=== PATIENT | male | born 1980 | race Two or more races ===

== ENCOUNTER 2016-11-30 08:00 | Outpatient (CLI) | payer BC ==
[2016-11-30 13:33] LABS: CALCIUM 9.2 mg/dL (8.5-10.3); CREATININE 1.3 mg/dL (0.6-1.2); POTASSIUM 3.8 mmol/L (3.5-5.0)
== END 2016-11-30 08:01 | disposition home or self-care (01) ==
LOC: LAB.WCP 08:00
PROVIDERS: ATTEND Family Medicine
DX: R30.0 Dysuria (principal)
CPT/HCPCS: 36415; 80048

== ENCOUNTER 2020-08-16 09:03 | Outpatient (CLI) | payer BC ==
--- NOTE | 2020-08-16 09:41 | XRAY Report ---
PROCEDURE: Chest 2 View X-Ray INDICATIONS: DYSPNEA ON EXERTION TECHNIQUE: 2 view(s) of the chest. COMPARISON: None. FINDINGS: Surgical changes and devices: None. Lungs and pleura: No pleural effusions or pneumothorax. Lungs are clear. Mediastinum: Mediastinal contours are normal. Heart size is normal. Bones and chest wall: No suspicious bony abnormalities. Soft tissues appear unremarkable. IMPRESSION: No acute disease. Reviewed by: Bao Peoples MD on 08/16/2020 9:39 AM [facility] Approved by: Bao Peoples MD on 08/16/2020 9:39 AM [facility] Station ID: [id number]
== END 2020-08-16 09:04 | disposition home or self-care (01) ==
LOC: DI.N 09:03
PROVIDERS: ATTEND Physician Assistant Medical
DX: Z00.00 Encounter for general adult medical examination without abnormal findings (principal); R06.09 Other forms of dyspnea; R13.10 Dysphagia, unspecified; R53.83 Other fatigue
CPT/HCPCS: 36415; 80053; 80061; 82306; 82607; 83721; 84443; 85025; 85651; 86140

== ENCOUNTER 2020-08-16 09:06 | Outpatient (CLI) | payer BC ==
[2020-08-16 13:05] LABS: BASOPHILS # (AUTO) 0.1 10^3/uL (0.0-0.1); BASOPHILS % (AUTO) 1.1 %; EOSINOPHILS # (AUTO) 0.5 10^3/uL (0.0-0.7); EOSINOPHILS % (AUTO) 5.6 %; LYMPHOCYTES # (AUTO) 2.3 10^3/uL (1.5-3.5); LYMPHOCYTES % (AUTO) 28.1 %; MEAN CORPUSCULAR HEMOGLOBIN 30.1 pg (27.0-31.0); MEAN CORPUSCULAR HGB CONC 32.7 g/dL (32.0-36.0); MONOCYTES # (AUTO) 0.8 10^3/uL (0.0-1.0); MONOCYTES % (AUTO) 10.4 %; NEUTROPHILS # (AUTO) 4.4 10^3/uL (1.5-6.6); NEUTROPHILS % (AUTO) 54.6 %; PLT - PLATELET COUNT 334 10^3/uL (130-450); RED BLOOD COUNT 4.65 10^6/uL (4.70-6.10); RED CELL DISTRIBUTION WIDTH 12.5 % (12.0-15.0); WHITE BLOOD COUNT 8.1 x10^3/uL (4.8-10.8)
[2020-08-16 13:36] LABS: ALBUMIN 4.2 g/dL (3.2-5.5); ALBUMIN/GLOBULIN RATIO 1.4 (1.0-2.2); ALKALINE PHOSPHATASE 54 IU/L (42-121); ALT ALANINE AMINOTRANSFERASE 31 IU/L (10-60); AST ASPARTATE AMINOTRANSFERASE 21 IU/L (10-42); BILIRUBIN,TOTAL 0.7 mg/dL (0.2-1.0); BUN - BLOOD UREA NITROGEN 18 mg/dL (6-20); CALCIUM 9.3 mg/dL (8.5-10.3); CARBON DIOXIDE - CO2 26 mmol/L (21-32); CHLORIDE 103 mmol/L (101-111); CHOL/HDL RATIO 2.8 (<5.0); CHOLESTEROL 156 mg/dL; CREATININE 1.3 mg/dL (0.6-1.2); GLUCOSE 101 mg/dL (70-100); HDL CHOLESTEROL 55 mg/dL; LDL CHOLESTEROL,CALCULATED 83 mg/dL; LDL/HDL RATIO 1.5 (<3.6); TOTAL PROTEIN 7.3 g/dL (6.7-8.2); VLDL CHOLESTEROL 18 mg/dL
[2020-08-16 13:37] LABS: CRP - C-REACTIVE PROTEIN < 1.0 mg/dL (0-1.0)
== END 2020-08-16 09:07 | disposition home or self-care (01) ==
LOC: LAB.N 09:06
PROVIDERS: ATTEND Physician Assistant Medical
DX: Z00.00 Encounter for general adult medical examination without abnormal findings (principal); R53.83 Other fatigue
CPT/HCPCS: 36415; 80053; 80061; 82306; 82607; 83721; 84443; 85025; 85651; 86140

== ENCOUNTER 2020-08-18 14:35 | Outpatient (CLI) | payer BC ==
[2020-08-18] MEDS ORDERED: IOVERSOL 320 100 ML VIAL IVP ONE ×2 (14:54→15:33)
--- NOTE | 2020-08-18 16:31 | CT Report ---
PROCEDURE: SOFT TISSUE NECK W INDICATIONS: DYSPHAGIA CONTRAST: IV CONTRAST: Optiray 320 ml: 100 PO CONTRAST: *NO PO CONTRAST TECHNIQUE: After the administration of intravenous contrast, 3.0 mm axial sections acquired from the sella to th e aortic arch. Additional oblique axial 3.0 mm sections acquired through the pharynx. 3 mm thick co tyrell reformats were generated. For radiation dose reduction, the following was used: automated exp osure control, adjustment of mA and/or kV according to patient size. COMPARISON: None. FINDINGS: Image quality: Excellent. Lymph nodes: No enlarged lymph nodes seen throughout the neck. Vessels: Visualized vasculature appears patent. Neck spaces: The oropharynx, nasopharynx, and pharynx demonstrate no mucosal lesions. The vocal cor ds, false vocal cords, pyriform sinuses, epiglottis, vallecula, and tongue base all appear normal. E xtramucosal spaces appear unremarkable. Glands: The parotid and submandibular glands appear normal. The thyroid demonstrates a punctate low -attenuation focus within the left lobe, better appreciated on ultrasound of 08/18/2020. Miscellaneous: Visualized brain and orbits appear normal. Lung apices appear clear. Superficial so ft tissues appear normal. Bones: No suspicious bony lesions. Visualized sinuses and mastoids appear unremarkable. IMPRESSION: 1. No visualized cause of dysphagia. 2. Punctate area of low attenuation within the left thyroid lobe, better appreciated on thyroid ultra sound of 08/18/2020. Reviewed by: Sonia Lowe MD on 08/18/2020 4:29 PM PST Approved by: Sonia Lowe MD on 08/18/2020 4:29 PM PST Station ID: [id number]
--- NOTE | 2020-08-18 16:56 | Ultrasound Report ---
PROCEDURE: Head or Neck Soft Tissue INDICATIONS: DYSPHAGIA TECHNIQUE: Real-time scanning was performed of the thyroid gland, with image documentation. COMPARISON: None FINDINGS: Right: Thyroid lobe measures 5.1 x 1.6 x 1.9 cm, and is homogeneous in echotexture. Left: Thyroid lobe measures 5.1 x 1.4 x 1.7 cm, and is homogenous in echotexture. Isthmus: 3 mm thick. Nodule number: One Location: Superior medial left lower Size: 0.4 x 0.3 x 0.4 cm. Composition: Solid Echogenicity: Hyperechoic Shape: wider than tall. Margins: Smooth Echogenic foci: None Total points: 3 ACR TI-RADS category: 3 IMPRESSION: Focal lesion demonstrating category 3 characteristics. Secondary to small size, based on below criteria, no additional follow-up is recommended. ACR TI-RADS definitions and recommendations: TI-RADS 1 (benign): 0 points. FNA not needed. TI-RADS 2 (not suspicious): 2 points. FNA not needed. TI-RADS 3 (mildly suspicious): 3 points. ? FNA if 2.5 cm or larger, follow up if 1.5 cm or larger (at 1, 3, and 5 years). TI-RADS 4 (moderately suspicious): 4-6 points. ? FNA if 1.5 cm or larger, follow up if 1 cm or larger (at 1, 2, 3, and 5 years). TI-RADS 5 (highly suspicious): 7 points or more. ? FNA if 1 cm or larger, follow up if 0.5 cm or larger (every year for 5 years). Reviewed by: Sonia Lowe MD on 08/18/2020 4:55 PM PST Approved by: Sonia Lowe MD on 08/18/2020 4:55 PM PST Station ID: [id number]
== END 2020-08-18 14:36 | disposition home or self-care (01) ==
LOC: DI 14:35
PROVIDERS: ATTEND Physician Assistant Medical
DX: E04.1 Nontoxic single thyroid nodule (principal)
CPT/HCPCS: 70491; 76536; Q9967

== ENCOUNTER 2020-11-03 15:41 | Outpatient (CLI) | payer BC ==
[2020-11-03 18:31] LABS: THYROID STIMULATING HORMONE 1.62 uIU/mL (0.34-5.60)
== END 2020-11-03 15:42 | disposition home or self-care (01) ==
LOC: LAB.N 15:41
PROVIDERS: ATTEND Physician Assistant Medical
DX: E55.9 Vitamin D deficiency, unspecified (principal); E03.9 Hypothyroidism, unspecified
CPT/HCPCS: 36415; 82306; 84443

== ENCOUNTER 2021-01-28 15:46 | Outpatient (CLI) | payer BC ==
[2021-01-28 18:07] LABS: THYROID STIMULATING HORMONE 2.43 uIU/mL (0.34-5.60)
== END 2021-01-28 15:47 | disposition home or self-care (01) ==
LOC: LAB.N 15:46
PROVIDERS: ATTEND Physician Assistant Medical
DX: E03.9 Hypothyroidism, unspecified (principal)
CPT/HCPCS: 36415; 84443

== ENCOUNTER 2021-02-25 15:40 | Outpatient (CLI) | payer BC ==
[2021-02-25 16:52] VITALS: BP 148/92
--- NOTE | 2021-02-25 16:52 | SLEEP CARE CONSULTATION ---
Information from patient questionnaire entered by Pierre Sommers. I have reviewed and concur with the information entered by Pierre Sommers. This document represents the service I personally performed and the decisions made by me, Felisha Ibarra ARNP. History of Present Illness Service Date and Time: 02/25/2021 1540 Reason for Visit: New patient Chief Complaint: reports: Unrefreshed sleep, Snoring, Excessive daytime sleepiness, Fatigue, Frequent awakenings at night Date of Onset: Whole life/as long as I can remember Usual bedtime: 11 PM - midnight Time it takes to fall asleep: Usually a couple hours/lately 10 - 15 min Snores at night: Yes Observed to quit breathing while asleep: No Sleeps alone due to snoring: No Number of times waking at night: Many Reasons for waking at night: reports: Snoring, Pain, Bathroom, Other (Noise, unknown reason) Toss, Turn, or Twitch while sleeping: Yes Recalls having dreams: Yes Usually gets out of bed at: Apx 6 AM Mon - Fri, 8 - 9 Sat & Sun Feels refreshed in the morning: No Morning headache: Yes (2 times a month) Sleepy or fatigued during the day: Yes Ever fallen asleep while driving: Yes (drowsy driving but no accidents) Takes day naps: Yes (used to takes several naps but now he is not napping due to adderall) Dreams during day naps: No Additional HPI information: I had the pleasure of seeing MEGAN TERRAZAS today regarding the possibility of him having a sleep disorder. His current complaints are unrefreshed sleep, snoring, insomnia, fatigue, frequent night awakenings and excessive daytime sleepiness. He states at his last PCP visit and was discussing his sleep issues. He has had insomnia all his life and is treated for depression and bipolar mood disorder. He used to be on seroquel but this has since been discontinued several months ago. He recently was found to have hypothyroidism and started on medications. He started sleeping better and felt so much better. But more recently he has been having more days with fatigue and poor sleep. He has had his [place] recently increased. He has not been using any sleep medication except Melatonin occasionally. He can fall asleep now but then he will wake up several times a night and sometimes not able to go back to sleep. He has snored in the past but his has not told him lately that he snores. He has gained a lot of weight when on Seroquel. He was able to lose some weight and thinks the snoring is better because of the weight loss. He has had times when he has woken up choking but this doesn't happen a lot. 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 Patient is single and lives in [place]. Have you smoked in the past 12 months: No Cigarettes per day (20/pack): 20 Years of smokin Quit date: 5-6 years Smoking Pack Years: 12.0 Alcohol use: Yes Alcohol amount and frequency: 2, 6-7 days/week ; really is much lower Caffeine use: Yes Caffeine amount and frequency: 2, 7 days a week Family History Family history of sleep disordered breathing: Yes Family Hx Sleep Apnea: Mother: Snoring, Father: Snoring Allergies and Home Medications Drug allergies reviewed: Yes (NKDA) Home medication list reviewed: Yes Allergy and home medication list: Bupropion Vitamin D Generic adderall Fluticasone, as needed Levothyroxine Albuterol Dunseith Melatonin Review of Systems Weight gain over past 5 years: 10 Gastrointestinal: reports: difficulty swallowing, abdominal pain Neurological: reports: headaches (occasional) Psychiatric: reports: Attention Deficit Hyperactivity, anxiety, depression, mood disorder Ear/Nose/Throat: denies: tonsillectomy Endocrine: reports: thyroid disease, sluggishness (tired), unexplained weakness Musculoskeletal: reports: joint pain (stiffness), muscle pain or cramping Physical Exam Blood Pressure: 148/92 Cuff size: wrist Heart Rate: 96 O2 Saturation: 98 Height: 5 ft 6 in Weight: 222 lb Body Mass Index: 35.8 BMI Classification: Obese Neck circumference: 17 (inches) Mouth and throat: narrow oropharynx Soft palate: long Hard palate: normal Uvula: normal Uvula visualization: 50% Mallampati Class II Tongue: enlarged in size with teeth shaffer on lateral edges Tonsils: absent bilaterally Neck: normal w/o lymphadenopathy or thyromegaly Heart: regular rate and rhythm Lungs: clear bilaterally Impression and Plan 1. Suspected Obstructive Sleep Apnea-Hypopnea Syndrome, as suggested by a history of loud and irregular snoring, gasping or choking in sleep, morning headache, frequent awakening during the night, unrefreshed sleep, and excessive daytime sleepiness. Narrow oropharynx and obesity are common predisposing factors for obstructive sleep apnea-hypopnea syndrome. I recommend proceeding to polysomnography to confirm the diagnosis and to assess severity. If the patient has significant sleep disordered breathing, a manual CPAP titration study will also be performed to find the optimal treatment pressure. I informed the patient of what the sleep studies involve and after some discussion, obtained agreement to proceed. The pathophysiology of obstructive sleep apnea-hypopnea syndrome was discussed with the patient and health risks of cardiovascular and cerebrovascular disease if not treated. AASM brochure for obstructive sleep apnea-hypopnea syndrome given and reviewed. Risks of drowsy driving discussed in detail and patient advised to avoid long distance driving and to door puller at the first sign of drowsiness. Patient agreed to plan. * Schedule polysomnography +- manual CPAP titration study and return in 1-2 weeks after the study to discuss result and initiate therapy. * Avoid long distance driving or driving when feeling sleepy. * Avoid alcohol, sedative and muscle relaxant around bedtime. * Attempt to lose weight. * Review instructions provided by trained office staff on how to prepare for the sleep study. * Return for follow-up after sleep study completed. Counseling Topics: Weight loss health impact Visit Type: In Office Time Spent with Patient (minutes): 41 Provider Statement: I spent 100% of the Face to Face Visit with the patient with greater than 50% spent counseling the patient and coordination of care.
== END 2021-02-25 15:41 | disposition home or self-care (01) ==
LOC: SC 15:40
PROVIDERS: ATTEND Nurse Practitioner Family
DX: G47.10 Hypersomnia, unspecified (principal); G47.8 Other sleep disorders; R51.9 Headache, unspecified; R06.83 Snoring; E66.9 Obesity, unspecified; Z87.891 Personal history of nicotine dependence; Z68.35 Body mass index [BMI] 35.0-35.9, adult
CPT/HCPCS: 99203; 99212

== ENCOUNTER 2021-03-05 15:40 | Outpatient (CLI) | payer BC | END 2021-03-05 15:41 | disposition home or self-care (01) | LOC: SC 15:40 | PROVIDERS: ATTEND Nurse Practitioner Family | DX: G47.33 Obstructive sleep apnea (adult) (pediatric) (principal); R09.02 Hypoxemia | CPT/HCPCS: 95806 ==

== ENCOUNTER 2021-03-18 15:45 | Outpatient (CLI) | payer BC ==
--- NOTE | 2021-03-18 16:29 | SLEEP CARE CONSULTATION ---
Information from patient questionnaire entered by Pierre Sommers. I have reviewed and concur with the information entered by Pierre Sommers. This document represents the service I personally performed and the decisions made by me, Felisha Ibarra ARNP. History of Present Illness Service Date and Time: 03/18/2021 1545 Initial [place] Sleepiness Scale score: 20 (in 2020) Current [place] Sleepiness Scale score: 18 Additional HPI information: MEGAN TERRAZAS returns for follow up and results of the recently performed home sleep study. I explained the pathophysiology behind obstructive sleep apnea. We then spent quite a bit of time discussing different treatment options. For mild obstructive sleep apnea, surgery and oral appliance are alternatives to nasal CPAP therapy but in moderate or severe cases, nasal CPAP is the most effective and reliable treatment. Because apnea is primarily in supine position, then positional management therapy could be effective. Methods discussed such as positioning with pillows, using a T-shirt with tennis balls in the back, and shown commercial products that have a pillow format on back to prevent supine sleep. I reviewed the impact of weight changes on sleep apnea and strongly recommended losing weight. After some discussion, the patient opted to go with the nasal CPAP therapy. Nasal autoCPAP set at 4-15 cmH20 will be ordered with rationale explained. A manual titration study will be ordered if unable to find optimal pressure with office adjustments. I explained how CPAP machine works with sample devices Respironics Dreamstation and ResPortalarium [id number] and what to expect when using the machine. Using CPAP every night in order to get used to it was emphasized. Patient advised to put CPAP mask on before getting into bed so as not to fall asleep without CPAP. To assist acclimation to CPAP use, it could also be used for a short time during day while reading or watching TV. The patient was instructed to call the CPAP supplier to discuss any mechanical problem that may occur. If the mask given is uncomfortable or is difficult to keep on through the night even with adjustment, contact the CPAP supplier as many will replace with another mask style if notified before 30 days. If snoring or perceives is not getting enough air or too much air from the machine, notify this office. [facility] patient education PAP tips reviewed and given to patient. Patient counseled not drink alcohol less than 4 hours before bedtime as it can increase snoring and apnea. Patient was cautioned about risks of drowsy driving until sleepiness symptoms resolve. Sleep Study - Results Type of Sleep Study: Home sleep study Prior sleep studies: No Polysomnography/Home Sleep Study results: Physician Impression: The quality of the study is good. The length of the study is adequate (> 240 minutes). Please also see the tabulated and graphic data. 1. Obstructive Sleep Apnea-Hypopnea (ICD-10 G47.33), mild, with an AHI of 7.7/hr and lucinda SaO2 of 75%. During the study, the patient had 5 apneas (5 obstructive, 0 central, 0 mixed) and 38 hypopneas. The longest episode lasted 78.0 seconds. The patient did not sleep supine during this study (supine AHI was 0, and non-supine, 7.68). 2. Hypoxemia (ICD-10 R09.02), moderate, with the lowest oxygen saturation of 75 % and 7.1 minutes with SaO2 under 90%. Baseline oxygen saturation was normal (Average oxygen saturation was 95%) Allergies and Home Medications Home medication list reviewed: Yes (Generic Depakote 250 mg) Review of Systems Review of systems same as previous: Yes (no changes) Physical Exam Heart Rate: 94 O2 Saturation: 98 Height: 5 ft 6 in Weight: 220 lb Body Mass Index: 35.5 BMI Classification: Obese Impression and Plan 1. Obstructive Sleep Apnea-Hypopnea Syndrome, mild, with lowest oxygen saturation of 75%. Obviously this is the cause of the patients symptoms of unrefreshed sleep, and excessive daytime sleepiness. Positive pressure therapy could benefit anxiety, depression, mood disorder (bipolar) and attention deficit. As mentioned above, the patient will be started on nasal autoCPAP therapy with pressure set at 4-15 cmH2O. A manual titration study will be completed if unable to find optimal treatment pressure with office adjustments. Compliance guidelines also reviewed. A copy of compliance guidelines will be given for reference at check out. 2. Hypoxemia, moderate, with the lowest oxygen saturation of 75 % and 7.1 minutes with SaO2 under 90%. His baseline oxygen saturation was normal with an average oxygen saturation of 95%. * Nasal auto CPAP therapy, pressure at 4-15 cm H2O. * Attempt to lose weight. * Avoid alcohol consumption near bedtime. * Avoid supine sleep until using CPAP. * The patient is again cautioned about driving until sleepiness completely resolves. * Return one month after CPAP obtained. I will assess response to therapy and compliance at that time. Counseling Topics: Weight loss health impact Visit Type: In Office Time Spent with Patient (minutes): 21 Provider Statement: I spent 100% of the Face to Face Visit with the patient with greater than 50% spent counseling the patient and coordination of care.
== END 2021-03-18 15:46 | disposition home or self-care (01) ==
LOC: SC 15:45
PROVIDERS: ATTEND Nurse Practitioner Family
DX: G47.33 Obstructive sleep apnea (adult) (pediatric) (principal); R09.02 Hypoxemia; E66.9 Obesity, unspecified; Z68.35 Body mass index [BMI] 35.0-35.9, adult
CPT/HCPCS: 99212; 99213

== ENCOUNTER 2021-05-01 07:43 | Outpatient (CLI) | payer BC | END 2021-05-01 07:44 | disposition home or self-care (01) | LOC: LAB.N 07:43 | PROVIDERS: ATTEND Physician Assistant Medical | DX: E03.9 Hypothyroidism, unspecified (principal) ==

== ENCOUNTER 2021-05-01 07:46 | Outpatient (CLI) | payer BC ==
[2021-05-01 13:39] LABS: THYROID STIMULATING HORMONE < 0.08 uIU/mL (0.34-5.60)
[2021-05-01 13:41] LABS: FREE T4 (FREE THYROXINE) 1.27 ng/dL (0.58-1.64)
[2021-05-01 13:56] LABS: LITHIUM 0.36 mmol/L
[2021-05-01 14:05] LABS: VALPROIC ACID (DEPAKOTE) 40.1 ug/mL
== END 2021-05-01 07:47 | disposition home or self-care (01) ==
LOC: LAB.N 07:46
PROVIDERS: ATTEND Psychiatry & Neurology Psychiatry
DX: F31.9 Bipolar disorder, unspecified (principal); Z79.899 Other long term (current) drug therapy
CPT/HCPCS: 36415; 80164; 80178; 84439; 84443; 84480

== ENCOUNTER 2021-08-22 09:23 | Outpatient (CLI) | payer BC ==
[2021-08-22 14:01] LABS: BASOPHILS # (AUTO) 0.1 10^3/uL (0.0-0.1); BASOPHILS % (AUTO) 1.3 %; EOSINOPHILS # (AUTO) 0.4 10^3/uL (0.0-0.7); EOSINOPHILS % (AUTO) 5.4 %; HCT - HEMATOCRIT 43.9 % (42.0-52.0); HGB - HEMOGLOBIN 14.7 g/dL (14.0-18.0); LYMPHOCYTES # (AUTO) 2.2 10^3/uL (1.5-3.5); LYMPHOCYTES % (AUTO) 31.8 %; MEAN CORPUSCULAR HEMOGLOBIN 29.9 pg (27.0-31.0); MEAN CORPUSCULAR HGB CONC 33.5 g/dL (32.0-36.0); MEAN CORPUSCULAR VOLUME 89.4 fL (80.0-94.0); MONOCYTES # (AUTO) 0.7 10^3/uL (0.0-1.0); MONOCYTES % (AUTO) 10.1 %; NEUTROPHILS # (AUTO) 3.5 10^3/uL (1.5-6.6); NEUTROPHILS % (AUTO) 51.3 %; PLT - PLATELET COUNT 352 10^3/uL (130-450); RED BLOOD COUNT 4.91 10^6/uL (4.70-6.10); RED CELL DISTRIBUTION WIDTH 12.5 % (12.0-15.0); WHITE BLOOD COUNT 6.9 x10^3/uL (4.8-10.8)
[2021-08-22 14:20] LABS: ALBUMIN 4.1 g/dL (3.2-5.5); ALBUMIN/GLOBULIN RATIO 1.2 (1.0-2.2); ALKALINE PHOSPHATASE 49 IU/L (42-121); ALT ALANINE AMINOTRANSFERASE 73 IU/L (10-60); AST ASPARTATE AMINOTRANSFERASE 33 IU/L (10-42); BILIRUBIN,TOTAL 0.7 mg/dL (0.2-1.0); BUN - BLOOD UREA NITROGEN 18 mg/dL (6-20); CALCIUM 9.1 mg/dL (8.5-10.3); CARBON DIOXIDE - CO2 25 mmol/L (21-32); CHLORIDE 104 mmol/L (101-111); CHOL/HDL RATIO 3.7 (<5.0); CHOLESTEROL 175 mg/dL; CREATININE 1.1 mg/dL (0.6-1.2); GFR - MDRD 73 (>89); GLUCOSE 93 mg/dL (70-100); HDL CHOLESTEROL 47 mg/dL; LDL CHOLESTEROL,CALCULATED 106 mg/dL; LDL/HDL RATIO 2.3 (<3.6); POTASSIUM 4.4 mmol/L (3.5-5.0); SODIUM 138 mmol/L (135-145); TOTAL PROTEIN 7.4 g/dL (6.7-8.2); TRIGLYCERIDES 109 mg/dL; VALPROIC ACID (DEPAKOTE) 38.8 ug/mL; VLDL CHOLESTEROL 22 mg/dL
[2021-08-22 14:52] LABS: THYROID STIMULATING HORMONE 0.93 uIU/mL (0.34-5.60)
== END 2021-08-22 09:24 | disposition home or self-care (01) ==
LOC: LAB.N 09:23
PROVIDERS: ATTEND Psychiatry & Neurology Psychiatry
DX: Z00.00 Encounter for general adult medical examination without abnormal findings (principal); F31.9 Bipolar disorder, unspecified; Z79.899 Other long term (current) drug therapy; E55.9 Vitamin D deficiency, unspecified; E03.9 Hypothyroidism, unspecified; B34.9 Viral infection, unspecified
CPT/HCPCS: 36415; 80053; 80061; 80164; 80178; 82306; 83721; 84443; 85025

== ENCOUNTER 2021-12-03 15:49 | Outpatient (CLI) | payer BC ==
[2021-12-03 17:54] LABS: ALBUMIN 4.1 g/dL (3.2-5.5); ALBUMIN/GLOBULIN RATIO 1.3 (1.0-2.2); BILIRUBIN,TOTAL 0.4 mg/dL (0.2-1.0); CALCIUM 8.9 mg/dL (8.5-10.3); CREATININE 1.1 mg/dL (0.6-1.2); TOTAL PROTEIN 7.2 g/dL (6.7-8.2)
[2021-12-03 18:07] LABS: BASOPHILS # (AUTO) 0.1 10^3/uL (0.0-0.1); BASOPHILS % (AUTO) 1.3 %; EOSINOPHILS # (AUTO) 0.4 10^3/uL (0.0-0.7); EOSINOPHILS % (AUTO) 4.3 %; HCT - HEMATOCRIT 42.8 % (42.0-52.0); HGB - HEMOGLOBIN 14.1 g/dL (14.0-18.0); LYMPHOCYTES # (AUTO) 3.3 10^3/uL (1.5-3.5); LYMPHOCYTES % (AUTO) 32.2 %; MEAN CORPUSCULAR HEMOGLOBIN 30.3 pg (27.0-31.0); MEAN CORPUSCULAR HGB CONC 32.9 g/dL (32.0-36.0); MEAN PLATELET VOLUME 10.8 fL (7.4-11.4); MONOCYTES # (AUTO) 1.1 10^3/uL (0.0-1.0); MONOCYTES % (AUTO) 10.2 %; NEUTROPHILS # (AUTO) 5.3 10^3/uL (1.5-6.6); NEUTROPHILS % (AUTO) 51.4 %; PLT - PLATELET COUNT 340 10^3/uL (130-450); RED BLOOD COUNT 4.65 10^6/uL (4.70-6.10); RED CELL DISTRIBUTION WIDTH 12.7 % (12.0-15.0); WHITE BLOOD COUNT 10.3 x10^3/uL (4.8-10.8)
== END 2021-12-03 15:50 | disposition home or self-care (01) ==
LOC: LAB.N 15:49
PROVIDERS: ATTEND Physician Assistant Medical
DX: R74.8 Abnormal levels of other serum enzymes (principal); Z79.899 Other long term (current) drug therapy
CPT/HCPCS: 36415; 80053; 85025

== ENCOUNTER 2022-03-19 14:40 | Outpatient (CLI) | payer BC ==
[2022-03-19 17:49] LABS: BASOPHILS # (AUTO) 0.1 10^3/uL (0.0-0.1); BASOPHILS % (AUTO) 0.9 %; EOSINOPHILS # (AUTO) 0.3 10^3/uL (0.0-0.7); EOSINOPHILS % (AUTO) 3.3 %; HCT - HEMATOCRIT 43.2 % (42.0-52.0); HGB - HEMOGLOBIN 14.4 g/dL (14.0-18.0); LYMPHOCYTES # (AUTO) 2.7 10^3/uL (1.5-3.5); MEAN CORPUSCULAR HEMOGLOBIN 29.3 pg (27.0-31.0); MEAN CORPUSCULAR HGB CONC 33.3 g/dL (32.0-36.0); MEAN CORPUSCULAR VOLUME 87.8 fL (80.0-94.0); MEAN PLATELET VOLUME 10.6 fL (7.4-11.4); MONOCYTES # (AUTO) 0.8 10^3/uL (0.0-1.0); MONOCYTES % (AUTO) 9.4 %; NEUTROPHILS # (AUTO) 4.8 10^3/uL (1.5-6.6); NEUTROPHILS % (AUTO) 55.2 %; PLT - PLATELET COUNT 379 10^3/uL (130-450); RED BLOOD COUNT 4.92 10^6/uL (4.70-6.10); RED CELL DISTRIBUTION WIDTH 12.4 % (12.0-15.0); WHITE BLOOD COUNT 8.6 x10^3/uL (4.8-10.8)
[2022-03-19 18:22] LABS: THYROID STIMULATING HORMONE 0.64 uIU/mL (0.34-5.60)
[2022-03-19 18:27] LABS: ALBUMIN 4.3 g/dL (3.2-5.5); ALBUMIN/GLOBULIN RATIO 1.3 (1.0-2.2); ALKALINE PHOSPHATASE 65 IU/L (42-121); ALT ALANINE AMINOTRANSFERASE 33 IU/L (10-60); AST ASPARTATE AMINOTRANSFERASE 19 IU/L (10-42); BILIRUBIN,TOTAL 0.5 mg/dL (0.2-1.0); BUN - BLOOD UREA NITROGEN 20 mg/dL (6-20); CALCIUM 9.5 mg/dL (8.5-10.3); CARBON DIOXIDE - CO2 26 mmol/L (21-32); CHLORIDE 105 mmol/L (101-111); CHOL/HDL RATIO 4.1 (<5.0); CHOLESTEROL 197 mg/dL; CREATININE 1.1 mg/dL (0.6-1.2); GFR - MDRD 73 (>89); GLUCOSE 145 mg/dL (70-100); HDL CHOLESTEROL 48 mg/dL; LDL CHOLESTEROL,CALCULATED 114 mg/dL; LDL/HDL RATIO 2.4 (<3.6); POTASSIUM 3.8 mmol/L (3.5-5.0); SODIUM 139 mmol/L (135-145); TOTAL PROTEIN 7.6 g/dL (6.7-8.2); TRIGLYCERIDES 177 mg/dL; VLDL CHOLESTEROL 35 mg/dL
== END 2022-03-19 14:41 | disposition home or self-care (01) ==
LOC: LAB.N 14:40
PROVIDERS: ATTEND Physician Assistant Medical
DX: Z00.00 Encounter for general adult medical examination without abnormal findings (principal); E03.9 Hypothyroidism, unspecified
CPT/HCPCS: 36415; 80053; 80061; 83721; 84443; 85025

== ENCOUNTER 2022-03-24 22:02 | Outpatient (CLI) | payer BC ==
--- NOTE | 2022-03-24 23:46 | Ultrasound Report ---
PROCEDURE: Testicle INDICATIONS: RIGHT TESTICULAR PAIN TECHNIQUE: Real-time scanning was performed of the scrotum and testicles, with image documentation. Color and p ulse Doppler interrogation was performed of both testicles. COMPARISON: None. FINDINGS: Right: Testicle measures 3.7 x 2.1 x 2.6 cm and appears homogenous in echotexture. There are numerou s punctate echogenic foci throughout the testicle consistent with microlithiasis. No discrete testicu lar mass identified. Epididymis is normal in overall size and morphology. There is an epididymal head cyst or spermatocele measuring up to 1.4 x 1.2 x 1.3 cm. There is a small hydrocele. There is a smal l varicoceles. Overlying scrotal skin is normal in thickness. Left: Testicle measures 3.4 x 1.7 x 2.9 cm and appears homogeneous in echotexture. There are numerou s punctate echogenic foci throughout the testicle consistent with microlithiasis. No discrete testicu lar mass identified. Epididymis is normal in overall size and morphology. No there is a small hydroc marbella. A varicocele is also demonstrated. Overlying scrotal skin is normal in thickness. Doppler: Color and pulse Doppler demonstrate normal and symmetric arterial flow in both testicles. P atent venous flow also demonstrated bilaterally. IMPRESSION: 1. No evidence of testicular torsion. 2. Right epididymal head cyst or spermatocele. 3. 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 The findings ar e nonspecific but have been described in association with increased risk for testicular neoplasm such as a seminoma. 4. Bilateral varicoceles, left greater than right. Reviewed by: Chong Boggs MD on 03/24/2022 11:45 PM PDT Approved by: Chong Boggs MD on 03/24/2022 11:45 PM PDT Station ID: [id number]
== END 2022-03-24 22:03 | disposition home or self-care (01) ==
LOC: DI 22:02
PROVIDERS: ATTEND Physician Assistant Medical
DX: N50.811 Right testicular pain (principal); N50.89 Other specified disorders of the male genital organs

== ENCOUNTER 2022-03-27 09:06 | Outpatient (CLI) | payer BC ==
[2022-03-27 19:29] LABS: CALCIUM 9.6 mg/dL (8.5-10.3); POTASSIUM 4.3 mmol/L (3.5-5.0)
== END 2022-03-27 09:07 | disposition home or self-care (01) ==
LOC: LAB.N 09:06
PROVIDERS: ATTEND Physician Assistant Medical
DX: Z00.00 Encounter for general adult medical examination without abnormal findings (principal)
CPT/HCPCS: 36415; 80048

== ENCOUNTER 2022-06-05 09:33 | Outpatient (CLI) | payer BC ==
[2022-06-05 19:01] LABS: BASOPHILS # (AUTO) 0.1 10^3/uL (0.0-0.1); EOSINOPHILS # (AUTO) 0.3 10^3/uL (0.0-0.7); HGB - HEMOGLOBIN 14.2 g/dL (14.0-18.0); LYMPHOCYTES # (AUTO) 2.4 10^3/uL (1.5-3.5); LYMPHOCYTES % (AUTO) 28.7 %; MEAN CORPUSCULAR HGB CONC 32.3 g/dL (32.0-36.0); MEAN CORPUSCULAR VOLUME 89.8 fL (80.0-94.0); MEAN PLATELET VOLUME 10.7 fL (7.4-11.4); MONOCYTES # (AUTO) 0.8 10^3/uL (0.0-1.0); NEUTROPHILS # (AUTO) 4.8 10^3/uL (1.5-6.6); NEUTROPHILS % (AUTO) 57.1 %; PLT - PLATELET COUNT 357 10^3/uL (130-450); RED CELL DISTRIBUTION WIDTH 12.6 % (12.0-15.0); WHITE BLOOD COUNT 8.3 x10^3/uL (4.8-10.8)
[2022-06-05 19:27] LABS: ALBUMIN 4.4 g/dL (3.2-5.5); ALBUMIN/GLOBULIN RATIO 1.2 (1.0-2.2); BILIRUBIN,TOTAL 0.7 mg/dL (0.2-1.0); CALCIUM 9.1 mg/dL (8.5-10.3); CREATININE 1.1 mg/dL (0.6-1.2); POTASSIUM 4.3 mmol/L (3.5-5.0)
== END 2022-06-05 09:34 | disposition home or self-care (01) ==
LOC: LAB.N 09:33
PROVIDERS: ATTEND Family Medicine
DX: R19.4 Change in bowel habit (principal); R14.0 Abdominal distension (gaseous)
CPT/HCPCS: 36415; 80053; 85025; 87045; 87046; 87329; 87427; 87493

== ENCOUNTER 2022-06-13 08:57 | Outpatient (CLI) | payer BC ==
[2022-06-13] MEDS ORDERED: DIATRIZOATE MEGLU/DIATRIZO SOD 30 ML BOTTLE PO ONE (09:10)
[2022-06-13] MEDS ORDERED: iohexoL-300 100 ML VIAL ONE (09:10)
[2022-06-13] MEDS: iohexoL-300 100 ML VIAL IVP ONE (10:23)
[2022-06-13] MEDS: DIATRIZOATE MEGLU/DIATRIZO SOD 30 ML BOTTLE PO ONE (10:24)
--- NOTE | 2022-06-13 11:12 | CT Report ---
PROCEDURE: ABDOMEN/PELVIS W INDICATIONS: CHANGE IN BOWELS, ABD BLOATING CONTRAST: 100ml omni 300 TECHNIQUE: After the administration of IV and oral contrast, 5 mm thick sections acquired from the diaphragms to the symphysis. 5 mm thick coronal and sagittal reformats were acquired. For radiation dose reducti on, the following was used: automated exposure control, adjustment of mA and/or kV according to amada ent size. COMPARISON: 01/06/2016 FINDINGS: Image quality: Excellent. ABDOMEN: Lung bases: Lung bases are clear. Heart size is normal. Solid organs: Liver and spleen are normal in size and enhancement. Gallbladder wall does not appear thickened. Biliary system is non dilated. Pancreas enhances normally. No adrenal nodules. Kidn eys demonstrate normal size and enhancement, without hydronephrosis. Peritoneum and bowel: There is a mild to moderate amount of stool seen throughout the colon. Within t he distal descending colon, there is focal moderate bowel wall thickening seen, which is best demonst rated on coronal images, as on series 6 images 22 through 28, which measures approximately 10 cm in l ength. No dilated loops of small bowel are seen. Prior appendectomy change can be seen. Nodes and vessels: No retroperitoneal or mesenteric adenopathy by size criteria. Aorta and inferior vena cava are normal in size. Miscellaneous: No ventral hernias. PELVIS: Genitourinary: Bladder wall thickness is normal. Miscellaneous: No inguinal hernias or adenopathy. Bones: No suspicious bony lesions. No vertebral body compression fractures. IMPRESSION: There is a 10 cm segment of focal bowel wall thickening involving the distal descending colon. Please correlate with potential causes of infectious or inflammatory colitis. If clinically appropriate, a follow-up colonoscopy could be considered for further evaluation. There is a mild to moderate stool seen within the colon. Please consider constipation. Additional findings: Prior appendectomy Reviewed by: Pato Rinaldi MD on 06/13/2022 10:10 AM [facility] Approved by: Pato Rinaldi MD on 06/13/2022 10:10 AM [facility] Station ID: [id number]
== END 2022-06-13 08:58 | disposition home or self-care (01) ==
LOC: DI 08:57
PROVIDERS: ATTEND Family Medicine
DX: R19.4 Change in bowel habit (principal); R14.0 Abdominal distension (gaseous); Z90.49 Acquired absence of other specified parts of digestive tract
CPT/HCPCS: 74177; Q9963; Q9967

== ENCOUNTER 2022-10-29 15:42 | Outpatient (CLI) | payer BC ==
[2022-10-29 20:57] LABS: THYROID STIMULATING HORMONE 0.33 uIU/mL (0.34-5.60)
[2022-10-29 21:31] LABS: FREE T4 (FREE THYROXINE) 0.95 ng/dL (0.58-1.64)
[2022-10-31 09:07] LABS: VITAMIN D 25-HYDROXY 39.8 ng/mL (30.0-100.0)
[2022-11-02 21:08] LABS: FREE TESTOSTERONE(DIRECT) 7.8 pg/mL (6.8-21.5)
== END 2022-10-29 15:43 | disposition home or self-care (01) ==
LOC: LAB.N 15:42
PROVIDERS: ATTEND Physician Assistant Medical
DX: E55.9 Vitamin D deficiency, unspecified (principal); R53.83 Other fatigue; E03.9 Hypothyroidism, unspecified
CPT/HCPCS: 36415; 82306; 84402; 84403; 84439; 84443

== ENCOUNTER 2023-01-27 15:30 | Outpatient (CLI) | payer BC ==
[2023-01-28 16:08] LABS: FREE TESTOSTERONE(DIRECT) 11.5 pg/mL (6.8-21.5)
== END 2023-01-27 15:31 | disposition home or self-care (01) ==
LOC: LAB.N 15:30
PROVIDERS: ATTEND Physician Assistant Medical
DX: E29.1 Testicular hypofunction (principal)
CPT/HCPCS: 36415; 84402; 84403

== ENCOUNTER 2023-05-16 15:38 | Outpatient (CLI) | payer BC ==
[2023-05-16 18:22] LABS: BASOPHILS # (AUTO) 0.1 10^3/uL (0.0-0.1); BASOPHILS % (AUTO) 0.7 %; EOSINOPHILS # (AUTO) 0.2 10^3/uL (0.0-0.7); EOSINOPHILS % (AUTO) 1.5 %; HCT - HEMATOCRIT 44.9 % (42.0-52.0); LYMPHOCYTES # (AUTO) 2.6 10^3/uL (1.5-3.5); LYMPHOCYTES % (AUTO) 26.8 %; MEAN CORPUSCULAR HGB CONC 33.4 g/dL (32.0-36.0); MEAN CORPUSCULAR VOLUME 86.7 fL (80.0-94.0); MEAN PLATELET VOLUME 10.8 fL (7.4-11.4); MONOCYTES # (AUTO) 0.8 10^3/uL (0.0-1.0); MONOCYTES % (AUTO) 8.7 %; NEUTROPHILS % (AUTO) 62.1 %; PLT - PLATELET COUNT 374 10^3/uL (130-450); RED BLOOD COUNT 5.18 10^6/uL (4.70-6.10); RED CELL DISTRIBUTION WIDTH 12.8 % (12.0-15.0); WHITE BLOOD COUNT 9.7 x10^3/uL (4.8-10.8)
[2023-05-16 18:53] LABS: ALBUMIN 4.6 g/dL (3.2-5.5); ALBUMIN/GLOBULIN RATIO 1.6 (1.0-2.2); BILIRUBIN,TOTAL 0.3 mg/dL (0.2-1.0); CALCIUM 9.7 mg/dL (8.5-10.3); POTASSIUM 4.2 mmol/L (3.5-4.5); TOTAL PROTEIN 7.5 g/dL (6.4-8.9)
[2023-05-16 19:00] LABS: THYROID STIMULATING HORMONE 1.61 uIU/mL (0.34-5.60)
[2023-05-18 16:08] LABS: FREE TESTOSTERONE(DIRECT) 10.8 pg/mL (6.8-21.5)
== END 2023-05-16 15:39 | disposition home or self-care (01) ==
LOC: LAB.N 15:38
PROVIDERS: ATTEND Physician Assistant Medical
DX: Z00.00 Encounter for general adult medical examination without abnormal findings (principal); E29.1 Testicular hypofunction; E03.9 Hypothyroidism, unspecified
CPT/HCPCS: 36415; 80053; 84402; 84403; 84443; 85025

== ENCOUNTER 2023-07-04 18:04 | Outpatient (CLI) | payer BC, OTHER | END 2023-07-04 18:05 | disposition EMS.NT | LOC: EMS 18:04 | DX: Z04.1 Encounter for examination and observation following transport accident (principal) ==

== ENCOUNTER 2023-11-09 15:31 | Outpatient (CLI) | payer BC ==
[2023-11-09 18:14] LABS: CHOL/HDL RATIO 3.6 (<5.0); CHOLESTEROL 187 mg/dL; HDL CHOLESTEROL 52 mg/dL; LDL CHOLESTEROL,CALCULATED 97 mg/dL; LDL/HDL RATIO 1.9 (<3.6); TRIGLYCERIDES 188 mg/dL (48-352); VLDL CHOLESTEROL 38 mg/dL
== END 2023-11-09 15:32 | disposition home or self-care (01) ==
LOC: LAB.N 15:31
PROVIDERS: ATTEND Physician Assistant Medical
DX: Z00.00 Encounter for general adult medical examination without abnormal findings (principal); E29.1 Testicular hypofunction
CPT/HCPCS: 36415; 80061; 83721; 84403